=== PATIENT | male | born 1970 | race Caucasian/White ===

== ENCOUNTER 2019-03-26 04:28 | Emergency (ER) | payer MEDICAID ==
[~2019-03-26] VITALS: Ht 175.3 cm; Wt 61.4 kg
[~2019-03-26 04:28] MED LIST: AZIT500T PO; BACL-19 PO; CEFD300C37 PO; FLUT1AER INH; OMEP-110 PO; PRED10TA PO; TIOT18CA INH
[2019-03-26 04:33] VITALS: BP 104/76
== END 2019-03-26 05:00 | disposition home or self-care (01) ==
LOC: ED 04:49
DX: B85.0 Pediculosis due to Pediculus humanus capitis (principal); Z59.0 Homelessness
CPT/HCPCS: 99282

== ENCOUNTER 2019-10-14 17:41 | Emergency (ER) | payer SELFPAY ==
[~2019-10-14] VITALS: Ht 175.3 cm; Wt 64.0 kg
[2019-10-14 17:45] VITALS: BP 113/64
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
[2019-10-14] MEDS ORDERED: HYDROcodone/APAP 5/325 TABLET ONE (20:38)
[2019-10-14] MEDS ORDERED: HYDROcodone/APAP 5/325 TABLET PO ONE (21:00)
== END 2019-10-14 21:40 | disposition home or self-care (01) ==
LOC: ED 21:26
DX: S80.02XA Contusion of left knee, initial encounter (principal); F17.200 Nicotine dependence, unspecified, uncomplicated; Y04.0XXA Assault by unarmed brawl or fight, initial encounter; Y93.89 Activity, other specified; Y92.410 Unspecified street and highway as the place of occurrence of the external cause; Y99.8 Other external cause status
CPT/HCPCS: 29505; 99284